=== PATIENT | female | born 1945 | race Caucasian/White ===

== ENCOUNTER 2019-07-07 21:38 | Inpatient (IN) | payer MEDICARE ==
[~2019-07-07] VITALS: Ht 157.5 cm; Wt 69.6 kg
[2019-07-07] MEDS ORDERED: LORAZEPAM 2MG/ML CPJ ONE (23:09)
[2019-07-07] MEDS ORDERED: ONDANSETRON HCL 4MG/2ML INJ IV STA (23:10)
[2019-07-07] MEDS ORDERED: SODIUM CHLORIDE 0.9% 1,000 ML IV ONE (23:10)
[2019-07-07] MEDS ORDERED: LORAZEPAM 2MG/ML CPJ IV ONE (23:15)
[2019-07-07] MEDS ORDERED: LEVETIRACETAM 500MG PREMIX 100 ML IV ONE (23:15)
[2019-07-08] VITALS (9 sets, daily range): BP systolic 118–147; BP diastolic 71–87
[2019-07-08 00:35] LABS: BG BASE EXCESS -5.9 mmol/L (-2.0-2.0); BG CARBOXYHEMOGLOBIN 0.4 % (0.5-1.5); BG DEOXYHEMOGLOBIN 7.5 % (0.0-5.0); BG FRACTION INSPIRED OXYGEN 21; BG HCO3 ACT 19.4 mmol/L (22.0-26.0); BG METHEMOGLOBIN 0.3 % (0.0-1.5); BG OXYGEN SATURATION 92.4 % (92.0-98.5); BG OXYHEMOGLOBIN 91.8 % (94.0-97.0); BG PCO2 37.4 mmHg (35.0-45.0); BG PH 7.333 (7.350-7.450); BG PO2 67.9 mmHg (75.0-100.0); BG SAMPLE SITE RIGHT RADIAL; BG TOTAL HEMOGLOBIN 12.6 g/dL (12.0-18.0); BG VENT MODE ROOM AIR
[2019-07-08 00:56] LABS: CHLORIDE 105 mEq/L (98-107)
[2019-07-08 00:58] LABS: BASOPHILS % 0.3 % (0.0-2.0); EOSINOPHILS % 0.1 % (0.0-5.0); HEMATOCRIT. 39.9 % (36.0-48.0); LYMPHOCYTES % 8.1 % (20.0-50.0); MEAN CORPUSCULAR HEMOGLOBIN 30.3 pg (28.0-32.0); MEAN CORPUSCULAR VOLUME 92.9 fL (81.0-99.0); MEAN PLATELET VOLUME 8.2 fl (7.4-10.4); MONOCYTES % 3.6 % (2.0-8.0); NEUTROPHILS % 87.9 % (40.0-76.0); PLATELET 272 x1000/uL (130-400); RED CELL DISTRIBUTION WIDTH 13.6 % (11.6-14.6)
[2019-07-08 01:03] LABS: ETHANOL BLOOD < 10 mg/dL
[2019-07-08] MEDS ORDERED: SODIUM CHLORIDE 0.9% 1,000 ML IV ONE (03:37)
[2019-07-08] MEDS ORDERED: INSULIN REGULAR (HUMULIN R) 300UNITS/3ML SUBCUT ONE (03:45)
[2019-07-08] MEDS ORDERED: ALEN70TA68 MT (11:01)
[2019-07-08] MEDS ORDERED: ASPI-1158 MT (11:03)
[2019-07-08] MEDS ORDERED: ATOR-2 PO (11:05)
[2019-07-08] MEDS ORDERED: INSU100I11 SQ (11:06)
[2019-07-08] MEDS ORDERED: XALAO EACHEYE (11:08)
[2019-07-08] MEDS ORDERED: METF-416 PO (11:10)
[2019-07-08] MEDS ORDERED: METO25TA6 MT (11:12)
[2019-07-08] MEDS ORDERED: OMEP20TA2 PO (11:13)
[2019-07-08] MEDS ORDERED: ONDANSETRON HCL 4MG/2ML INJ IV PRN (11:15)
[2019-07-08] MEDS ORDERED: DOCUSATE SODIUM 100MG CAPSULE PO PRN (11:15)
[2019-07-08] MEDS ORDERED: GUAIFENESIN 200MG/10ML SUGAR FREE UDC PO PRN (11:15)
[2019-07-08] MEDS ORDERED: CLONIDINE 0.1MG TABLET PO PRN (11:15)
[2019-07-08] MEDS ORDERED: SILV50CR31 TP (11:15)
[2019-07-08] MEDS ORDERED: IPRATROPIUM/ALBUTEROL 0.5-3(2.5)MG/3ML NEB NEB PRN (11:15)
[2019-07-08] MEDS ORDERED: NA PHOS,M-B/NA PHOS,DI-BA ENEMA 118ML PR PRN (11:15)
[2019-07-08] MEDS ORDERED: MAGNESIUM/ALUMINUM HYDROXIDE/SIMETHICONE 30ML UDC PO PRN (11:15)
[2019-07-08] MEDS ORDERED: LORAZEPAM 0.5MG TABLET PO PRN (11:15)
[2019-07-08] MEDS ORDERED: ACETAMINOPHEN 650MG SUPP PR PRN (11:15)
[2019-07-08] MEDS ORDERED: LEVETIRACETAM 500 MG in SODIUM CHLORIDE 0.9% 100 ML IV SCH (11:15)
[2019-07-08] MEDS ORDERED: ACETAMINOPHEN 325MG TABLET PO PRN (11:15)
[2019-07-08] MEDS ORDERED: HYDROCODONE/ACETAMINOPHEN 5/325MG TABLET PO PRN (11:15)
[2019-07-08] MEDS ORDERED: DIPHENHYDRAMINE 50MG/ML VIAL IV PRN (11:15)
[2019-07-08] MEDS ORDERED: [UNRECOGNIZED DRUG - CODE] EACHEYE (11:16)
[2019-07-08] MEDS ORDERED: DEXTROSE 50% WATER 50ML SYRINGE IV PRN (12:30)
[2019-07-08] MEDS: BLOOD SUGAR DIAGNOSTIC STRIP TEST SCH ×3 (12:39→21:00)
[2019-07-08] MEDS: INSULIN LISPRO 100 UNITS/ML SUBCUT SCH ×3 (13:00→23:34)
[2019-07-08] MEDS ORDERED: LEVETIRACETAM 500MG PREMIX 100 ML IV NR (13:00)
[2019-07-08 18:29] LABS: BG BASE EXCESS 1.2 mmol/L (-2.0-2.0); BG CARBOXYHEMOGLOBIN 0.2 % (0.5-1.5); BG DEOXYHEMOGLOBIN 5.8 % (0.0-5.0); BG FRACTION INSPIRED OXYGEN 21; BG HCO3 ACT 25.4 mmol/L (22.0-26.0); BG METHEMOGLOBIN 0.1 % (0.0-1.5); BG OXYGEN SATURATION 94.2 % (92.0-98.5); BG OXYHEMOGLOBIN 93.9 % (94.0-97.0); BG PCO2 39.1 mmHg (35.0-45.0); BG PH 7.431 (7.350-7.450); BG PO2 69.8 mmHg (75.0-100.0); BG SAMPLE SITE RIGHT RADIAL; BG VENT MODE ROOM AIR
[2019-07-08] MEDS: LEVOFLOXACIN 500MG PREMIX 100 ML IV SCH (20:47)
[2019-07-08] MEDS: LEVETIRACETAM 500MG PREMIX 100 ML IV SCH (20:51)
[2019-07-08] MEDS ORDERED: VANCOMYCIN 1 G PREMIX 200 ML IV NR (21:30)
[2019-07-09] VITALS (13 sets, daily range): BP systolic 89–141; BP diastolic 40–85
[2019-07-09 07:10] LABS: BASOPHILS % 0.4 % (0.0-2.0); EOSINOPHILS % 2.3 % (0.0-5.0); HEMATOCRIT. 35.4 % (36.0-48.0); HEMOGLOBIN. 11.9 g/dL (12.0-16.0); LYMPHOCYTES % 29.8 % (20.0-50.0); MEAN CORPUSCULAR HEMOGLOBIN 30.6 pg (28.0-32.0); MEAN CORPUSCULAR VOLUME 90.7 fL (81.0-99.0); MEAN PLATELET VOLUME 8.4 fl (7.4-10.4); MONOCYTES % 8.5 % (2.0-8.0); PLATELET 242 x1000/uL (130-400); RED BLOOD CELL COUNT 3.91 mill/uL (4.2-5.4); RED CELL DISTRIBUTION WIDTH 13.6 % (11.6-14.6)
[2019-07-09] MEDS: BLOOD SUGAR DIAGNOSTIC STRIP TEST SCH ×4 (08:02→20:51)
[2019-07-09 08:38] LABS: CHLORIDE 108 mEq/L (98-107)
[2019-07-09 08:48] LABS: HDL CHOLESTEROL 48 mg/dL (40-59); LDL CHOLESTEROL 82 mg/dL (5-100); T4 FREE 1.37 ng/dL (0.76-1.46)
[2019-07-09] MEDS: LEVETIRACETAM 500MG PREMIX 100 ML IV SCH ×2 (09:00→20:52)
[2019-07-09] MEDS: VANCOMYCIN 500 MG PREMIX 100 ML IV SCH ×2 (10:21→21:23)
[2019-07-09 13:03] LABS: PROTHROMBIN TIME 10.3 sec (9.6-11.0)
[2019-07-09] MEDS: INSULIN LISPRO 100 UNITS/ML SUBCUT SCH ×3 (13:58→21:20)
[2019-07-09] MEDS ORDERED: KEPP500 MT (16:42)
[2019-07-09] MEDS ORDERED: LEVO500T2 MT (16:42)
[2019-07-09] MEDS: METFORMIN HCL 500MG TABLET PO SCH (17:30)
[2019-07-09 17:44] LABS: CLARITY URINE CLEAR (CLEAR); COLOR URINE YELLOW (YELLOW); KETONES URINE NEGATIVE (NEGATIVE); LEUKOCYTE ESTERASE URINE NEGATIVE (NEGATIVE); NITRITE URINE NEGATIVE (NEGATIVE); OCCULT BLOOD URINE NEGATIVE (NEGATIVE); PH URINE 5.5 (4.5-8.0); PROTEIN URINE NEGATIVE (NEGATIVE); SPECIFIC GRAVITY URINE 1.022 (1.005-1.030); UROBILINOGEN URINE 0.2 E.U./dL (0.2-1.0)
[2019-07-09] MEDS: LEVOFLOXACIN 500MG PREMIX 100 ML IV SCH (20:11)
[2019-07-10] VITALS (7 sets, daily range): BP systolic 104–130; BP diastolic 51–75
[2019-07-10] MEDS: BLOOD SUGAR DIAGNOSTIC STRIP TEST SCH (06:52)
[2019-07-10] MEDS: LEVETIRACETAM 500MG PREMIX 100 ML IV SCH (08:36)
[2019-07-10] MEDS: INSULIN LISPRO 100 UNITS/ML SUBCUT SCH (08:36)
[2019-07-10] MEDS: METFORMIN HCL 500MG TABLET PO SCH (08:36)
[2019-07-10] MEDS ORDERED: VANCOMYCIN 1 G PREMIX 200 ML IV SCH (12:00)
[2019-07-10] MEDS ORDERED: LEVOFLOXACIN 500MG TABLET PO SCH (20:00)
== END 2019-07-10 11:20 | disposition home or self-care (01) | DRG 871 ==
LOC: ER 21:38 → 5EST 07-08 03:15 → EDBEDREQ 07-08 03:17 → EDBEDREQDT 07-08 03:17 → EDBEDREQTM 07-08 03:17 → EDBEDREQSVC 07-08 03:18 → EDBEDREQ 07-08 03:18 → ENRESERV 07-08 07:44
PROVIDERS: ADMIT Internal Medicine; ATTEND Internal Medicine
DX: A41.9 Sepsis, unspecified organism (principal); G92 Toxic encephalopathy; N39.0 Urinary tract infection, site not specified; G40.89 Other seizures; E87.2 Acidosis; L03.119 Cellulitis of unspecified part of limb; E11.65 Type 2 diabetes mellitus with hyperglycemia; I10 Essential (primary) hypertension; M19.90 Unspecified osteoarthritis, unspecified site; S01.512A Laceration without foreign body of oral cavity, initial encounter; X58.XXXA Exposure to other specified factors, initial encounter; Y93.89 Activity, other specified; Y92.89 Other specified places as the place of occurrence of the external cause; Y99.8 Other external cause status; Z86.73 Personal history of transient ischemic attack (TIA), and cerebral infarction without residual deficits; Z88.0 Allergy status to penicillin; Z79.2 Long term (current) use of antibiotics; Z79.82 Long term (current) use of aspirin; Z79.84 Long term (current) use of oral hypoglycemic drugs; Z79.4 Long term (current) use of insulin; Z79.899 Other long term (current) drug therapy
CPT/HCPCS: 36415; 36600; 70551; 71045; 80053; 80061; 80202; 80320; 81003; 82140; 82375; 82550; 82805; 82962; 83036; 83605; 84439; 84443; 84484; 85025; 92610; 93005; 93306; 93970; 96365; 97116; 97162; 97530; 99291; J1815; J1953; J1956; J2060; J2405; J3370; J7030; J7040; G0480

== ENCOUNTER 2021-10-10 17:17 | Inpatient (IN) | payer MEDICARE ==
[~2021-10-10] VITALS: Ht 160 cm; Wt 69.4 kg
[~2021-10-10 17:17] MED LIST: ALEN70TA79 MT; ASPI-1406 MT; ATOR-2 PO; CITA10TA16 MT; INSU100I11 SQ; LAM25 MT; METF-416 PO; METO25TA6 MT; MIRT7.5T11 PO; OMEP20TA2 PO; SILV50CR31 TP; TOPUD PO; XALAO EACHEYE; [UNRECOGNIZED DRUG - CODE] EACHEYE
[2021-10-10 18:22] LABS: BASOPHILS % 0.6 % (0.0-2.0); HEMATOCRIT. 38.2 % (36.0-48.0); HEMOGLOBIN. 12.8 g/dL (12.0-16.0); LYMPHOCYTES % 23.8 % (20.0-50.0); MEAN CORPUSCULAR HEMOGLOBIN 31.1 pg (28.0-32.0); MEAN CORPUSCULAR VOLUME 92.6 fL (81.0-99.0); MEAN PLATELET VOLUME 7.1 fl (7.4-10.4); MONOCYTES % 6.4 % (2.0-8.0); NEUTROPHILS % 66.2 % (40.0-76.0); PLATELET 302 x1000/uL (130-400); RED BLOOD CELL COUNT 4.13 mill/uL (4.2-5.4); RED CELL DISTRIBUTION WIDTH 13.3 % (11.6-14.6)
[2021-10-10 18:39] LABS: CHLORIDE 104 mEq/L (98-107)
[2021-10-10 18:45] LABS: ETHANOL BLOOD < 10 mg/dL
[2021-10-10 19:02] LABS: CLARITY URINE CLEAR (CLEAR); COLOR URINE YELLOW (YELLOW); KETONES URINE NEGATIVE (NEGATIVE); LEUKOCYTE ESTERASE URINE NEGATIVE (NEGATIVE); NITRITE URINE NEGATIVE (NEGATIVE); OCCULT BLOOD URINE NEGATIVE (NEGATIVE); PROTEIN URINE NEGATIVE (NEGATIVE); SPECIFIC GRAVITY URINE 1.021 (1.005-1.030); UROBILINOGEN URINE 0.2 E.U./dL (0.2-1.0)
[2021-10-10 19:16] LABS: *AMPHETAMINES SCREEN URINE NEGATIVE (NEGATIVE); *BARBITURATES SCREEN URINE NEGATIVE (NEGATIVE); *BENZODIAZEPINES SCREEN URINE NEGATIVE (NEGATIVE); *COCAINE SCREEN URINE NEGATIVE (NEGATIVE); CANNABINOID URINE SCREEN NEGATIVE (NEGATIVE); METHADONE URINE SCREEN NEGATIVE (NEGATIVE); OPIATES URINE SCREEN NEGATIVE (NEGATIVE); PHENCYCLIDINE URINE SCREEN NEGATIVE (NEGATIVE)
[2021-10-10] MEDS ORDERED: IOHEXOL-350 100 ML BOTTLE ONE (19:46)
[2021-10-10 22:30] VITALS: BP 145/72
[2021-10-11] MEDS ORDERED: HYDROCODONE/ACETAMINOPHEN 5/325MG TABLET PO PRN (06:45)
[2021-10-11] MEDS ORDERED: NALOXONE HCL 0.4MG/ML VIAL IV PRN (07:00)
[2021-10-11] MEDS: ACETAMINOPHEN 325MG TABLET PO PRN (07:03)
[2021-10-11] MEDS: BLOOD SUGAR DIAGNOSTIC STRIP TEST SCH ×4 (07:10→20:56)
[2021-10-11 08:00] VITALS: BP 118/51
[2021-10-11] MEDS ORDERED: ENOXAPARIN 40MG/0.4ML SYR SUBCUT SCH (09:00)
[2021-10-11] MEDS ORDERED: ENOXAPARIN 30MG/0.3ML SYR SUBCUT SCH (09:00)
[2021-10-11] MEDS: PANTOPRAZOLE 40MG DR TABLET PO SCH (09:51)
[2021-10-11] MEDS ORDERED: IPRATROPIUM/ALBUTEROL 0.5-3(2.5)MG/3ML NEB NEB PRN (10:15)
[2021-10-11] MEDS ORDERED: CLONIDINE 0.1MG TABLET PO PRN (10:15)
[2021-10-11] MEDS ORDERED: ONDANSETRON HCL 4MG/2ML INJ IV PRN (10:15)
[2021-10-11] MEDS ORDERED: GUAIFENESIN 200MG/10ML SUGAR FREE UDC PO PRN (10:15)
[2021-10-11] MEDS ORDERED: DIPHENHYDRAMINE 50MG/ML VIAL IV PRN (10:15)
[2021-10-11] MEDS ORDERED: NA PHOS,M-B/NA PHOS,DI-BA ENEMA 118ML PR PRN (10:15)
[2021-10-11] MEDS ORDERED: MAGNESIUM/ALUMINUM HYDROXIDE/SIMETHICONE 30ML UDC PO PRN (10:15)
[2021-10-11] MEDS ORDERED: DOCUSATE SODIUM 100MG CAPSULE PO PRN (10:15)
[2021-10-11] MEDS ORDERED: LORAZEPAM 0.5MG TABLET PO PRN (10:15)
[2021-10-11 10:33] LABS: BASOPHILS % 0.7 % (0.0-2.0); HEMATOCRIT. 36.2 % (36.0-48.0); HEMOGLOBIN. 12.2 g/dL (12.0-16.0); LYMPHOCYTES % 31.7 % (20.0-50.0); MEAN CORPUSCULAR HEMOGLOBIN 31.3 pg (28.0-32.0); MEAN CORPUSCULAR VOLUME 92.9 fL (81.0-99.0); MEAN PLATELET VOLUME 7.3 fl (7.4-10.4); MONOCYTES % 6.9 % (2.0-8.0); NEUTROPHILS % 55.7 % (40.0-76.0); PLATELET 280 x1000/uL (130-400); RED BLOOD CELL COUNT 3.89 mill/uL (4.2-5.4); RED CELL DISTRIBUTION WIDTH 13.3 % (11.6-14.6)
[2021-10-11 10:44] LABS: CHLORIDE 105 mEq/L (98-107)
[2021-10-11 11:05] LABS: HDL CHOLESTEROL 47 mg/dL (40-59); LDL CHOLESTEROL 72 mg/dL (5-100); T4 FREE 1.26 ng/dL (0.76-1.46)
[2021-10-11 12:00] VITALS: BP 125/61
[2021-10-11] MEDS ORDERED: INSULIN GLARGINE 100 UNITS/ML SUBCUT NR (13:00)
[2021-10-11] MEDS: TROPICAMIDE 1% OPHTH DROPS 15ML EACHEYE SCH ×4 (13:00→20:55)
[2021-10-11] MEDS ORDERED: DEXTROSE 50% WATER 50ML SYRINGE IV PRN (15:45)
[2021-10-11 16:00] VITALS: BP 121/60
[2021-10-11] MEDS: CITALOPRAM HYDROBROMIDE 10MG TABLET PO SCH (16:00)
[2021-10-11] MEDS: LAMOTRIGINE 25MG TABLET PO SCH (16:00)
[2021-10-11 16:55] LABS: PROTHROMBIN TIME 10.8 sec (9.6-11.0)
[2021-10-11] MEDS: GABAPENTIN 100MG CAPSULE PO SCH (18:03)
[2021-10-11] MEDS: METOPROLOL TARTRATE 25MG TABLET PO SCH (18:04)
[2021-10-11] MEDS: INSULIN LISPRO 100 UNITS/ML SUBCUT SCH ×2 (18:05→20:43)
[2021-10-11 20:00] VITALS: BP 124/65
[2021-10-11] MEDS: ATORVASTATIN CALCIUM 40MG TABLET PO SCH (20:29)
[2021-10-11] MEDS: LATANOPROST 0.005% OPHTH DROPS 2.5ML EACHEYE SCH (20:56)
[2021-10-11] MEDS ORDERED: MIRTAZAPINE 15MG TABLET PO PRN (21:00)
[2021-10-11] MEDS ORDERED: MEDICATION NOT ON FORMULARY EA (Atorvastatin Calcium 80 MG) PO SCH (21:00)
[2021-10-12] VITALS: BP 131/72
[2021-10-12 04:00] VITALS: BP 116/63
[2021-10-12] MEDS: BLOOD SUGAR DIAGNOSTIC STRIP TEST SCH ×4 (06:06→21:09)
[2021-10-12] MEDS: PANTOPRAZOLE 40MG DR TABLET PO SCH (06:14)
[2021-10-12] MEDS: INSULIN LISPRO 100 UNITS/ML SUBCUT SCH ×4 (06:28→21:18)
[2021-10-12 07:53] VITALS: BP 136/64
[2021-10-12] MEDS: METOPROLOL TARTRATE 25MG TABLET PO SCH ×2 (08:17→16:48)
[2021-10-12] MEDS: GABAPENTIN 100MG CAPSULE PO SCH ×2 (08:17→16:48)
[2021-10-12] MEDS: LATANOPROST 0.005% OPHTH DROPS 2.5ML EACHEYE SCH ×2 (08:18→20:55)
[2021-10-12] MEDS: LAMOTRIGINE 25MG TABLET PO SCH (08:18)
[2021-10-12] MEDS: SILVER SULFADIAZINE 1% CREAM 25GM TOP SCH (08:19)
[2021-10-12] MEDS: CITALOPRAM HYDROBROMIDE 10MG TABLET PO SCH (08:31)
[2021-10-12] MEDS: TROPICAMIDE 1% OPHTH DROPS 15ML EACHEYE SCH ×5 (09:00→21:00)
[2021-10-12] MEDS ORDERED: ASPIRIN 81MG EC TABLET PO SCH (09:00)
[2021-10-12 12:08] VITALS: BP 135/62
[2021-10-12] MEDS ORDERED: MIDAZOLAM HCL 2 MG/2 ML VIAL ONE (14:16)
[2021-10-12] MEDS ORDERED: LIDOCAINE HCL 1% 20ML VIAL (Pyxis) INJ ONE (14:16)
[2021-10-12] MEDS ORDERED: IODIXANOL 320MG/ML 100 ML BOTTLE IV ONE (14:16)
[2021-10-12] MEDS ORDERED: FENTANYL CITRATE/PF 50MCG/ML 2ML VIAL ONE (14:30)
[2021-10-12 15:50] LABS: BASOPHILS % 0.5 % (0.0-2.0); EOSINOPHILS % 3.5 % (0.0-5.0); HEMATOCRIT. 39.1 % (36.0-48.0); HEMOGLOBIN. 13.1 g/dL (12.0-16.0); LYMPHOCYTES % 33.3 % (20.0-50.0); MEAN CORPUSCULAR VOLUME 92.2 fL (81.0-99.0); MEAN PLATELET VOLUME 7.3 fl (7.4-10.4); MONOCYTES % 8.1 % (2.0-8.0); NEUTROPHILS % 54.6 % (40.0-76.0); PLATELET 335 x1000/uL (130-400); RED BLOOD CELL COUNT 4.24 mill/uL (4.2-5.4); RED CELL DISTRIBUTION WIDTH 13.1 % (11.6-14.6)
[2021-10-12 16:00] VITALS: BP_SYST 105; BP_SYST 136; BP_DIAS 53; BP_DIAS 65
[2021-10-12 16:06] LABS: CHLORIDE 109 mEq/L (98-107)
[2021-10-12 20:00] VITALS: BP 152/75
[2021-10-12] MEDS: ACETAMINOPHEN 325MG TABLET PO PRN (20:55)
[2021-10-12] MEDS: ATORVASTATIN CALCIUM 40MG TABLET PO SCH (20:56)
[2021-10-12] MEDS: CARBIDOPA/LEVODOPA 10/100MG TABLET PO SCH (21:16)
[2021-10-13 00:53] VITALS: BP 132/60
[2021-10-13 04:00] VITALS: BP 114/62
[2021-10-13] MEDS: PANTOPRAZOLE 40MG DR TABLET PO SCH (05:47)
[2021-10-13] MEDS: CARBIDOPA/LEVODOPA 10/100MG TABLET PO SCH (05:48)
[2021-10-13] MEDS: BLOOD SUGAR DIAGNOSTIC STRIP TEST SCH ×2 (05:52→12:47)
[2021-10-13] MEDS: INSULIN LISPRO 100 UNITS/ML SUBCUT SCH ×2 (06:32→12:48)
[2021-10-13 07:46] VITALS: BP 126/62
[2021-10-13 08:24] LABS: BASOPHILS % 0.5 % (0.0-2.0); EOSINOPHILS % 4.8 % (0.0-5.0); HEMATOCRIT. 37.6 % (36.0-48.0); HEMOGLOBIN. 12.6 g/dL (12.0-16.0); LYMPHOCYTES % 36.8 % (20.0-50.0); MEAN CORPUSCULAR VOLUME 92.5 fL (81.0-99.0); MEAN PLATELET VOLUME 7.7 fl (7.4-10.4); MONOCYTES % 8.8 % (2.0-8.0); NEUTROPHILS % 49.1 % (40.0-76.0); PLATELET 303 x1000/uL (130-400); RED BLOOD CELL COUNT 4.06 mill/uL (4.2-5.4); RED CELL DISTRIBUTION WIDTH 13.3 % (11.6-14.6)
[2021-10-13] MEDS: TROPICAMIDE 1% OPHTH DROPS 15ML EACHEYE SCH ×2 (08:42→12:29)
[2021-10-13] MEDS: CITALOPRAM HYDROBROMIDE 10MG TABLET PO SCH (08:43)
[2021-10-13] MEDS: METOPROLOL TARTRATE 25MG TABLET PO SCH (08:43)
[2021-10-13] MEDS: LAMOTRIGINE 25MG TABLET PO SCH (08:44)
[2021-10-13] MEDS: GABAPENTIN 100MG CAPSULE PO SCH (08:44)
[2021-10-13] MEDS: SILVER SULFADIAZINE 1% CREAM 25GM TOP SCH (08:45)
[2021-10-13 08:52] LABS: CHLORIDE 107 mEq/L (98-107)
[2021-10-13] MEDS ORDERED: CARB-298 MT (10:27)
[2021-10-13 10:31] VITALS: BP 126/62
[2021-10-13 12:48] VITALS: BP 118/65
== END 2021-10-13 14:10 | disposition home health service (06) | DRG 84 ==
LOC: ER 17:17 → 8WST 20:59 → EDBEDREQ 21:19 → EDBEDREQTM 21:19 → EDBEDREQSVC 21:19 → ENRESERV 21:27
PROVIDERS: ADMIT Internal Medicine; ATTEND Internal Medicine
PROC: B3121ZZ Fluoroscopy of Left Subclavian Artery using Low Osmolar Contrast (ICD-10-PCS; principal; 2021-10-12)
DX: S06.6X9A Traumatic subarachnoid hemorrhage with loss of consciousness of unspecified duration, initial encounter (principal); E11.65 Type 2 diabetes mellitus with hyperglycemia; E66.9 Obesity, unspecified; E78.5 Hyperlipidemia, unspecified; I10 Essential (primary) hypertension; Z20.822 Contact with and (suspected) exposure to COVID-19; W18.39XA Other fall on same level, initial encounter; R29.810 Facial weakness; I70.8 Atherosclerosis of other arteries; Z88.1 Allergy status to other antibiotic agents; Z88.0 Allergy status to penicillin; Z79.82 Long term (current) use of aspirin; Z79.4 Long term (current) use of insulin; Z79.899 Other long term (current) drug therapy; Y93.89 Activity, other specified; Y92.098 Other place in other non-institutional residence as the place of occurrence of the external cause; Y99.8 Other external cause status; Z68.27 Body mass index [BMI] 27.0-27.9, adult; Z86.73 Personal history of transient ischemic attack (TIA), and cerebral infarction without residual deficits; G20 Parkinson's disease; I72.8 Aneurysm of other specified arteries
CPT/HCPCS: 36215; 36415; 70496; 70498; 70551; 71045; 75710; 80048; 80053; 80061; 80305; 80320; 81003; 82962; 83036; 84439; 84481; 85025; 87426; 93005; 93306; 93880; 93970; 97162; 99291; C1760; C1769; C1893; J1644; J1650; J1815; J2250; J3010; J3490; Q9967; G0480

== ENCOUNTER 2023-11-14 20:58 | Emergency (ER) | payer MEDICARE ==
[~2023-11-14] VITALS: Ht 160 cm; Wt 63.4 kg
[~2023-11-14 20:58] MED LIST changes: +ACET-2708 MT; -ASPI-1406 MT; -OMEP20TA2 PO; +OMEP20TA23 PO; +[UNRECOGNIZED DRUG - CODE] MT
[2023-11-14 22:04] VITALS: O2SAT 98
[2023-11-14] MEDS ORDERED: MECLIZINE 25MG TABLET PO ONE (22:30)
[2023-11-14] MEDS: MECLIZINE 12.5MG TABLET PO NR (23:17)
[2023-11-14 23:21] VITALS: TEMP 98
[2023-11-14] MEDS: ACETAMINOPHEN 325MG TABLET PO ONE (23:21)
[2023-11-14] MEDS: LIDOCAINE 5% PATCH TOP SCH (23:22)
[2023-11-14 23:45] LABS: BASOPHILS % 0.7 % (0.0-2.0); EOSINOPHILS % 3.9 % (0.0-5.0); HEMATOCRIT. 38.4 % (36.0-48.0); HEMOGLOBIN. 12.9 g/dL (12.0-16.0); MEAN CORPUSCULAR HEMOGLOBIN 31.7 pg (28.0-32.0); MEAN CORPUSCULAR HGB CONC 33.6 g/dL (31.0-37.0); MEAN CORPUSCULAR VOLUME 94.4 fL (81.0-99.0); MONOCYTES % 7.8 % (2.0-8.0); NEUTROPHILS % 52.6 % (40.0-76.0); PLATELET 335 x1000/uL (130-400); RED BLOOD CELL COUNT 4.07 mill/uL (4.2-5.4); RED CELL DISTRIBUTION WIDTH 13.1 % (11.6-14.6); WHITE BLOOD COUNT 9.1 x1000/uL (4.5-11.0)
[2023-11-14 23:52] LABS: CHLORIDE 105 mEq/L (98-107); POTASSIUM 4.2 mEq/L (3.5-5.1); SODIUM 140 mEq/L (136-145)
[2023-11-14 23:53] LABS: CALCIUM 9.8 mg/dL (8.7-10.4); CARBON DIOXIDE 30 mEq/L (21-32)
[2023-11-14 23:58] LABS: CREATININE 0.9 mg/dL (0.6-1.0); GLUCOSE 110 mg/dL (70-105); UREA NITROGEN BLOOD 17 mg/dL (9-23)
[2023-11-15] LABS: ETHANOL BLOOD < 10 mg/dL (<10)
[2023-11-15 00:01] LABS: TROPONIN I HIGH SENSITIVITY < 4 ng/L (3.0-34)
[2023-11-15 00:08] LABS: INR 0.9; PARTIAL THROMBOPLASTIN TIME 26.2 sec (23.4-31.0)
[2023-11-15 00:13] LABS: *AMPHETAMINES SCREEN URINE NEGATIVE (NEGATIVE); *BARBITURATES SCREEN URINE NEGATIVE (NEGATIVE); *BENZODIAZEPINES SCREEN URINE NEGATIVE (NEGATIVE); *COCAINE SCREEN URINE NEGATIVE (NEGATIVE); METHADONE URINE SCREEN NEGATIVE (NEGATIVE)
[2023-11-15 00:14] LABS: CANNABINOID URINE SCREEN NEGATIVE (NEGATIVE); ECSTASY MDMA SCREEN URINE NEGATIVE (NEGATIVE); OPIATES URINE SCREEN NEGATIVE (NEGATIVE); PHENCYCLIDINE URINE SCREEN NEGATIVE (NEGATIVE)
[2023-11-15 00:21] LABS: CLARITY URINE TURBID (CLEAR); COLOR URINE YELLOW (YELLOW); GLUCOSE URINE NEGATIVE (NEGATIVE); KETONES URINE NEGATIVE (NEGATIVE); LEUKOCYTE ESTERASE URINE NEGATIVE (NEGATIVE); NITRITE URINE NEGATIVE (NEGATIVE); OCCULT BLOOD URINE NEGATIVE (NEGATIVE); PROTEIN URINE NEGATIVE (NEGATIVE); SPECIFIC GRAVITY URINE 1.015 (1.005-1.030); UROBILINOGEN URINE 0.2 E.U./dL (0.2-1.0)
[2023-11-15] MEDS ORDERED: MECL-299 MT (02:25)
[2023-11-15] MEDS ORDERED: ACET-2708 MT (02:25)
[2023-11-15 02:59] VITALS: BP 128/52; PULSE 86; RESP 20
[2023-11-15 03:05] LABS: BACTERIA URINE NONE SEEN; RBC URINE 0-2 /hpf (0-2); SQUAMOUS EPITHELIAL CELL URINE NONE SEEN /lpf (RARE/1+); WBC URINE 0-2 /hpf (0-2)
[2023-11-15 03:06] LABS: AMORPHOUS SEDIMENT URINE 2+ /lpf
== END 2023-11-15 03:01 | disposition home or self-care (01) ==
LOC: ER 20:58
DX: R42 Dizziness and giddiness (principal); R53.1 Weakness; F41.9 Anxiety disorder, unspecified; E11.9 Type 2 diabetes mellitus without complications; K21.9 Gastro-esophageal reflux disease without esophagitis; I10 Essential (primary) hypertension; Z86.73 Personal history of transient ischemic attack (TIA), and cerebral infarction without residual deficits
CPT/HCPCS: 80305; 80048; 81003; 80320; 83880; 85025; 85610; 85730; 84484; 36415; 71045; 70450; 93005; 99285; J8597; G0480